=== PATIENT | female | born 1935 | race Asian ===

== ENCOUNTER 2018-09-03 08:46 | Day surgery (SDC) | payer MEDICARE, OTHER ==
[2018-09-03] MEDS ORDERED: LIDOCAINE 2% (SDV) 5 ML INJ (10:24)
[2018-09-03] MEDS ORDERED: PROPOFOL 40 ML (10:24)
[2018-09-03] MEDS ORDERED: ONDANSETRON 4 MG INJ IV (10:30)
[2018-09-03] MEDS ORDERED: EPHEDrine SULFATE 50 MG/5 ML SYG IV (10:30)
[2018-09-03] MEDS ORDERED: hydrALAzine 20 MG INJ IV (10:30)
[2018-09-03] MEDS ORDERED: LABETALOL HCL 20MG INJ IV (10:30)
== END 2018-09-03 12:17 | disposition home or self-care (01) ==
LOC: GIL 08:46
DX: R19.4 Change in bowel habit (principal); D12.0 Benign neoplasm of cecum; K55.20 Angiodysplasia of colon without hemorrhage; I10 Essential (primary) hypertension
CPT/HCPCS: 45380; 88305